=== PATIENT | female | born 1995 | race Caucasian/White ===

== ENCOUNTER 2018-09-28 22:28 | Emergency (ER) | payer BC ==
[2018-09-28] MEDS ORDERED: methylPREDNISolone Sod Succ/PF 125 MG/2 ML VIAL ONE (22:52)
[2018-09-28 23:07] LABS: #Eosinphils 0.1 thou/uL (0.0-0.7); #Lymphocytes 1.7 thou/uL (1.20-3.40); #Monocytes 0.4 thou/uL (0.11-0.59); #Neutrophils 2.2 thou/uL (1.40-6.50); %Basophils 0.2 % (0.0-1.0); %Eosinophils 1.8 % (0.0-10.0); %Lymphocytes 38.2 % (21.0-51.0); %Neutrophils 50.8 % (42.0-75.0); Hemoglobin 12.4 g/dL (12.0-16.0); Mean Corpuscular HGB CONC 34.7 g/dL (32.0-36.0); Mean Corpuscular Hemoglobin 33.3 pg (27.0-31.0); Mean Platelet Volume 9.1 fL (7.4-10.4); Platelet Count 185 thou/uL (130-400); RBC Distribution Width 11.6 % (11.5-14.5); Red Blood Cell (RBC) Count 3.72 mill/uL (4.20-5.40); White Blood Cell (WBC) Count 4.3 thou/uL (4.8-10.8)
[2018-09-28 23:14] LABS: BHCG - Serum Negative (NEGATIVE); Pregs Control Background? CLEAR/WHITE (CLR/WHITE); Pregs Control Bar Appear? YES (CONTROL BAR)
[2018-09-28 23:28] LABS: ALT (SGPT) 18 U/L (8-55); AST (SGOT) 20 U/L (5-34); Albumin 4.5 g/dL (3.5-5.0); Alkaline Phosphatase 68 U/L (40-150); Anion Gap 11 mmol/L (10-20); BUN (Urea Nitrogen) 12 mg/dL (7.0-18.7); Bilirubin, Total 0.3 mg/dL (0.2-1.2); Calc. Creatinine Clearance 0 mL/min (70-130); Calcium 9.7 mg/dL (7.8-10.44); Carbon Dioxide 28 mmol/L (22-29); Chloride 104 mmol/L (98-107); Estimated GFR-MDRD Greater than 90; Globulin 2.9 g/dL (2.4-3.5); Glucose 92 mg/dL (70-105); Potassium 3.6 mmol/L (3.5-5.1); Protein, Total 7.4 g/dL (6.0-8.3); Sodium 139 mmol/L (136-145)
--- NOTE | 2018-09-29 | CT ---
CTA Angio Chest W WO Con HISTORY: Chest pain shortness of breath COMPARISON: None. FINDINGS: The lungs are clear of any infiltrative process. No pleural effusions. No pulmonary nodules . No significant mediastinal or hilar lymphadenopathy. The thoracic aorta is normal in caliber. There is good [place] artery opacification, there is no CT evidence for pulmonary embolus. Visualized liver parenchyma shows no focal findings. Hypodensity involving upper pole of the right ki dney is incompletely characterized potentially a small cyst. IMPRESSION: No CT evidence for pulmonary embolus.
[2018-09-29 00:56] LABS: Troponin I Less than 0.010 ng/mL (< 0.028)
== END 2018-09-29 01:13 | disposition home or self-care (01) ==
LOC: ERS 22:28
DX: R07.89 Other chest pain (principal); M32.9 Systemic lupus erythematosus, unspecified
CPT/HCPCS: 36415; 71275; 80053; 83880; 84484; 84703; 85025; 93005; 96374; J2930